=== PATIENT | male | born 1955 | race Caucasian/White ===

== ENCOUNTER 2016-10-04 13:49 | Emergency (ER) | payer OTHER ==
[~2016-10-04] VITALS: Ht 177.8 cm; Wt 109.1 kg
[2016-10-04 13:54] VITALS: BP 178/97; PULSE 84; RESP 20; O2SAT 97
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
== END 2016-10-04 15:23 | disposition home or self-care (01) ==
LOC: SED 13:49
DX: S29.019A Strain of muscle and tendon of unspecified wall of thorax, initial encounter (principal); M25.512 Pain in left shoulder; V53.5XXA Driver of pick-up truck or van injured in collision with car, pick-up truck or van in traffic accident, initial encounter; Y93.89 Activity, other specified; Y92.410 Unspecified street and highway as the place of occurrence of the external cause; Y99.8 Other external cause status; E11.9 Type 2 diabetes mellitus without complications; I10 Essential (primary) hypertension; Z88.5 Allergy status to narcotic agent
CPT/HCPCS: 71020; 73030; 99284; J1885